=== PATIENT | male | born 1975 | race Caucasian/White ===

== ENCOUNTER → 2020-06-10 | Outpatient (CLI) | payer BC | LOC: RAD 12:54 | DX: M50.90 Cervical disc disorder, unspecified, unspecified cervical region (principal) | CPT/HCPCS: 72040 ==

== ENCOUNTER → 2020-06-24 | Outpatient (CLI) | payer BC | LOC: EMI 06-23 15:45 | DX: G58.8 Other specified mononeuropathies (principal); M50.30 Other cervical disc degeneration, unspecified cervical region | CPT/HCPCS: 72141 ==

== ENCOUNTER → 2021-02-24 | Outpatient (CLI) | payer BC | LOC: KOH-I 09:35 | DX: M54.51 Vertebrogenic low back pain (principal); M47.816 Spondylosis without myelopathy or radiculopathy, lumbar region | CPT/HCPCS: 72110 ==